=== PATIENT | male | born 1955 | race Caucasian/White ===

== ENCOUNTER 2019-02-11 16:23 | Emergency (ER) | payer MEDICAID ==
[~2019-02-11] VITALS: Ht 170.2 cm; Wt 75.0 kg
--- NOTE | 2019-02-11 16:33 | ERD ---
ER Documentation Chief Complaint Chief Complaint palpitation HPI The patient is a 64-year-old male, presenting to the ER because of acute palpitation around 3 PM, denies similar symptoms previously, denies syncope, near syncope, weakness, neck pain, chest pain, dyspnea, abdominal pain, vomiting, dysuria. The symptoms lasted for a few minutes and went away by itself. He denies any unusual stress, does not smoke, drinks socially Past medical history: None Surgical history: Cholecystectomy ROS All systems reviewed and are negative except as per history of present illness. Medications Home Meds No Active Prescriptions or Reported Meds Allergies Allergies: Coded Allergies: No Known Allergy (Unverified , 02/11/19) Physical Exam Vitals Vital Signs Date Temp Pulse Resp B/P (MAP) Pulse Ox O2 O2 Flow FiO2 Time Delivery Rate 02/11/19 90 15 126/76 96 Room Air 18:27 (93) 02/11/19 97 15 130/79 97 Room Air 17:00 (96) 02/11/19 98.4 102 20 151/81 99 16:51 (104) Physical Exam Const: No acute distress. Head: Atraumatic. Eyes: Normal Conjunctiva. ENT: Normal External Ears, Nose and Mouth. Neck: Full range of motion. No meningismus. Resp: Clear to auscultation bilaterally. Cardio: Regular rate and rhythm. Abd: Soft, non distended, normal bowel sounds, non tender. Skin: No petechiae or rashes. Back: No midline or flank tenderness. Ext: No cyanosis, or edema. Neur: Awake and alert. No focal deficit Psych: Normal Mood and Affect. Result Diagram: 02/11/19 1650 02/11/19 1650 Results 24 hrs Laboratory Tests Test 02/11/19 16:50 02/11/19 18:31 White Blood Count 6.3 10^3/ul Red Blood Count 4.96 10^6/ul Hemoglobin 13.8 g/dl Hematocrit 41.8 % Mean Corpuscular Volume 84.3 fl Mean Corpuscular Hemoglobin 27.8 pg Mean Corpuscular Hemoglobin Concent 33.0 g/dl Red Cell Distribution Width 14.1 % Platelet Count 236 10^3/UL Mean Platelet Volume 8.9 fl Immature Granulocytes % 0.200 % Neutrophils % 63.8 % Lymphocytes % 22.9 % Monocytes % 10.3 % Eosinophils % 2.2 % Basophils % 0.6 % Nucleated Red Blood Cells % 0.0 /100WBC Immature Granulocytes # 0.010 10^3/ul Neutrophils # 4.0 10^3/ul Lymphocytes # 1.5 10^3/ul Monocytes # 0.7 10^3/ul Eosinophils # 0.1 10^3/ul Basophils # 0.0 10^3/ul Nucleated Red Blood Cells # 0.0 10^3/ul D-Dimer 248.33 ng/ml D-Dimer Comment Sodium Level 141 mmol/L Potassium Level 3.6 mmol/L Chloride Level 102 mmol/L Carbon Dioxide Level 28 mmol/L Anion Gap 11 Blood Urea Nitrogen 16 mg/dl Creatinine 0.81 mg/dl Est Glomerular Filtrat Rate mL/min > 60 mL/min Glucose Level 147 mg/dl Calcium Level 9.1 mg/dl Troponin I < 0.012 ng/ml Thyroid Stimulating Hormone (TSH) 3.170 MIU/L Bedside Urine pH (LAB) 5.5 Bedside Urine Protein (LAB) Negative Bedside Urine Glucose (UA) Negative Bedside Urine Ketones (LAB) Negative Bedside Urine Blood Negative Bedside Urine Nitrite (LAB) Negative Bedside Urine Leukocyte Esterase (L Trace Procedures/[place] [id number] Radiology Main Line: [phone] DIAGNOSTIC IMAGING REPORT Patient: MAURICE DALLAS : 1955 Age: 64 Sex: M MR #: [id number] DOS: 02/11/19 1641 Ordering MD: URIEL ZEPEDA MD Location: E/R Room/Bed: PROCEDURE: XR Chest. CLINICAL INDICATION: chest pain TECHNIQUE: Single frontal view of the chest was obtained COMPARISON: None FINDINGS: The heart and mediastinum are within normal limits. The lungs are clear. There is no pleural effusion or pneumothorax. RPTAT: AA IMPRESSION: No acute disease. .North Tanner MD, Date Time Electronically viewed and signed by .North Tanner MD, on 02/11/2019 17:06 .S/ CC: URIEL ZEPEDA MD [phone] EKG: Read by emergency physician Rate/Rhythm: Normal Sinus Rhythm 97 beats/min QRS, ST, T-waves: No ST elevation, no T inversion Impression: Normal EKG MEDICAL MAKING DECISION: The patient is a 64-year-old male, presenting acute palpitation, resolved, unclear etiology, is stable for outpatient follow-up The differential diagnoses considered include but are not limited to anxiety attack, panic attack, PE, thyroid disease, ACS Departure Diagnosis: Primary Impression: Palpitations Condition: Good Comments I discussed the findings with the patient. I advised the patient to follow-up with the primary physician in about 2-3 days, sooner if needed and return if any concern. Disclaimer: Inadvertent spelling and grammatical errors are likely due to EHR/dictation software use and do not reflect on the overall quality of patient care. Also, please note that the electronic time recorded on this note does not necessarily reflect the actual time of the patient encounter. URIEL ZEPEDA MD Feb 11, 2019 16:33
[2019-02-11 16:51] VITALS: Ht 170.2 cm; Wt 75.0 kg
[2019-02-11 18:27] VITALS: BP 126/76; PULSE 90; RESP 15
== END 2019-02-11 19:02 | disposition home or self-care (01) ==
LOC: E/R 16:23
DX: R00.2 Palpitations (principal)
CPT/HCPCS: 36415; 71045; 80048; 81003; 84443; 84484; 85025; 85378; 93005; Z7502